=== PATIENT | male | born 1980 | race Caucasian/White ===

== ENCOUNTER 2020-02-11 20:05 | Emergency (ER) | payer BC ==
[~2020-02-11] VITALS: Ht 165.1 cm; Wt 106.4 kg
[2020-02-11 20:12] VITALS: BP 160/109
[2020-02-11] MEDS ORDERED: methylPREDNISolone SS 125 MG in WATER STERILE 2 ML IM ONE (20:25)
[2020-02-11] MEDS ORDERED: WATER STERILE 10 ML MC ONE (20:29)
[2020-02-11] MEDS ORDERED: methylPREDNISolone SS 125 MG/2 ML VIAL ONE (20:29)
[2020-02-11 20:51] VITALS: BP 159/98
== END 2020-02-11 20:49 | disposition home or self-care (01) ==
LOC: MED 20:05
DX: T78.40XA Allergy, unspecified, initial encounter (principal); I10 Essential (primary) hypertension; X58.XXXA Exposure to other specified factors, initial encounter
CPT/HCPCS: 96372; 99283; J2930